=== PATIENT | male | born 1945 | race Caucasian/White ===

== ENCOUNTER 2017-07-06 21:41 | Inpatient (IN) | payer SELFPAY ==
[~2017-07-06] VITALS: Ht 180.3 cm; Wt 101.8 kg
[~2017-07-06 21:41] MED LIST: ZYPREXA20 MG PO
[2017-07-06 22:24] LABS: BASOPHIL (%) 0.2 % (0-1); EOSINOPHIL (%) 0.1 % (0-5); HEMATOCRIT 40.3 % (38.0-50.0); HEMOGLOBIN 14.4 G/DL (12.5-16.6); IMMATURE GRANULOCYTE (%) 0.9 % (0.0-0.7); LYMPHOCYTE (%) 2.1 % (15-42); LYMPHOCYTE COUNT 0.3 K/uL (1.0-2.8); MCH 30.9 PG (29.0-34.0); MCHC 35.7 G/DL (30.0-36.0); MCV 86.5 FL (86-99); NEUTROPHIL (%) 90.7 % (45-76); NEUTROPHIL COUNT 14.5 K/uL (1.8-6.4); PLATELET COUNT 136 K/uL (156-360); RBC DIS.WIDTH-CV 12.4 % (11.8-14.6); RBC DIS.WIDTH-SD 39.4 % (39-53); RED BLOOD COUNT 4.66 M/uL (4.00-5.50)
[2017-07-06 22:43] LABS: INTER. NORMALIZED RATIO 1.2
[2017-07-06 22:44] LABS: CHLORIDE 100 mEq/L (99-109); POTASSIUM 3.8 mEq/L (3.7-5.4); SODIUM 131 mEq/L (136-147)
[2017-07-06 22:46] LABS: GLUCOSE 116 mg/dL (70-99); PTT 25.9 SEC (25-37)
[2017-07-06 22:50] LABS: CREATININE 1.4 mg/dL (0.6-1.3); GFR ESTIMATE (CALCULATED) 53 mL/min/ (58.99-99999); TROP-I INTERPRETATION NEGATIVE; TROPONIN-I 0.01 ng/mL (0.0-0.30); UREA NITROGEN (BUN) 18 mg/dL (9-23)
[2017-07-07 01:57] LABS: APPEARANCE CLEAR ((CLEAR)); BILIRUBIN NEGATIVE; BLOOD NEGATIVE; COLOR YELLOW ((YELLOW)); GLUCOSE (STRIP) NEGATIVE; KETONES NEGATIVE; LEUKOCYTES NEGATIVE; NITRITE NEGATIVE; PROTEIN (STRIP) 30; SPECIFIC GRAVITY 1.018 (1.000-1.030); UCUL ADDED? NO
[2017-07-07 04:26] LABS: ALBUMIN 3.6 g/dL (3.2-4.8)
[2017-07-07 04:29] LABS: TOTAL PROTEIN 5.7 g/dL (6.4-8.3)
[2017-07-07 04:31] LABS: TOTAL BILIRUBIN 1.1 mg/dL (0.0-1.0)
[2017-07-07 04:32] LABS: ALKALINE PHOSPHATASE 40 IU/L (3-129)
[2017-07-07 04:34] LABS: AST (GOT) 41 IU/L (2-34)
[2017-07-07 04:35] LABS: ALT (GPT) 23 IU/L (3-49); DIRECT BILIRUBIN 0.5 mg/dL (0.0-0.3)
[2017-07-07 04:41] LABS: TROP-I INTERPRETATION NEGATIVE; TROPONIN-I 0.03 ng/mL (0.0-0.30)
[2017-07-07 05:45] VITALS: BP 135/67
[2017-07-07 05:51] VITALS: BP 135/67
[2017-07-07 06:20] LABS: CHLORIDE 103 MEQ/L (99-109); CREATININE 1.5 MG/DL (0.6-1.3); GFR ESTIMATE (CALCULATED) 49 mL/min/ (58.99-99999); GLUCOSE 105 mg/dL (70-99); POTASSIUM 4.1 MEQ/L (3.7-5.4); SODIUM 134 MEQ/L (136-147); UREA NITROGEN (BUN) 17 mg/dL (9-23)
[2017-07-07 07:41] LABS: THYROTROPIN (TSH) 1.6 MIU/L (0.4-5.5)
[2017-07-07 07:47] VITALS: BP 96/55
[2017-07-07 11:03] LABS: BASOPHIL (%) 0.2 % (0-1); EOSINOPHIL (%) 0 % (0-5); HEMATOCRIT 34.4 % (38.0-50.0); HEMOGLOBIN 12.1 G/DL (12.5-16.6); IMMATURE GRANULOCYTE (%) 0.7 % (0.0-0.7); LYMPHOCYTE (%) 4.4 % (15-42); LYMPHOCYTE COUNT 0.5 K/uL (1.0-2.8); MCH 31.1 PG (29.0-34.0); MCHC 35.2 G/DL (30.0-36.0); MCV 88.4 FL (86-99); MONOCYTE (%) 3.5 % (3-12); MONOCYTE COUNT 0.4 K/uL (0-0.8); NEUTROPHIL (%) 91.2 % (45-76); NEUTROPHIL COUNT 11.1 K/uL (1.8-6.4); PLATELET COUNT 116 K/uL (156-360); RBC DIS.WIDTH-CV 12.8 % (11.8-14.6); RBC DIS.WIDTH-SD 40.8 % (39-53); RED BLOOD COUNT 3.89 M/uL (4.00-5.50); WHITE BLOOD COUNT 12.1 K/uL (4.1-10.2)
[2017-07-07 11:30] VITALS: BP 103/63
[2017-07-07 11:31] LABS: TROP-I INTERPRETATION NEGATIVE; TROPONIN-I 0.03 ng/mL (0.0-0.30)
[2017-07-07 15:58] VITALS: BP 114/65
[2017-07-07 20:20] VITALS: BP 96/61
[2017-07-08 01:00] VITALS: BP 113/65
[2017-07-08 04:20] VITALS: BP 106/70
[2017-07-08 04:57] LABS: BASOPHIL (%) 0.2 % (0-1); EOSINOPHIL (%) 0.2 % (0-5); HEMATOCRIT 34.7 % (38.0-50.0); IMMATURE GRANULOCYTE (%) 0.4 % (0.0-0.7); LYMPHOCYTE (%) 13.2 % (15-42); LYMPHOCYTE COUNT 1.1 K/uL (1.0-2.8); MCH 30.9 PG (29.0-34.0); MCHC 34.6 G/DL (30.0-36.0); MCV 89.4 FL (86-99); MONOCYTE (%) 7.2 % (3-12); MONOCYTE COUNT 0.6 K/uL (0-0.8); NEUTROPHIL (%) 78.8 % (45-76); NEUTROPHIL COUNT 6.4 K/uL (1.8-6.4); PLATELET COUNT 115 K/uL (156-360); RBC DIS.WIDTH-CV 12.8 % (11.8-14.6); RBC DIS.WIDTH-SD 41.8 % (39-53); RED BLOOD COUNT 3.88 M/uL (4.00-5.50); WHITE BLOOD COUNT 8.1 K/uL (4.1-10.2)
[2017-07-08 05:07] LABS: ALBUMIN 2.9 g/dL (3.2-4.8); SODIUM 138 mEq/L (136-147)
[2017-07-08 05:09] LABS: GLUCOSE 87 mg/dL (70-99)
[2017-07-08 05:13] LABS: ALKALINE PHOSPHATASE 33 IU/L (3-129); CREATININE 1.4 mg/dL (0.6-1.3); GFR ESTIMATE (CALCULATED) 53 mL/min/ (58.99-99999)
[2017-07-08 05:14] LABS: CHLORIDE 111 mEq/L (99-109); TOTAL BILIRUBIN 0.4 mg/dL (0.0-1.0); TOTAL PROTEIN 4.8 g/dL (6.4-8.3); UREA NITROGEN (BUN) 18 mg/dL (9-23)
[2017-07-08 05:16] LABS: ALT (GPT) 23 IU/L (3-49)
[2017-07-08 05:34] LABS: AST (GOT) 65 IU/L (2-34)
[2017-07-08 07:50] VITALS: BP 102/67
[2017-07-08 12:00] VITALS: BP 114/72
[2017-07-08 16:13] VITALS: BP 147/89
[2017-07-08 19:33] VITALS: BP 137/82
[2017-07-09] VITALS (7 sets, daily range): BP systolic 113–138; BP diastolic 72–84
[2017-07-09 10:04] LABS: BASOPHIL (%) 0.4 % (0-1); EOSINOPHIL (%) 1.5 % (0-5); EOSINOPHIL COUNT 0.1 K/uL (0-0.3); HEMATOCRIT 37.3 % (38.0-50.0); HEMOGLOBIN 13.1 G/DL (12.5-16.6); IMMATURE GRANULOCYTE (%) 0.4 % (0.0-0.7); LYMPHOCYTE (%) 16.6 % (15-42); LYMPHOCYTE COUNT 0.9 K/uL (1.0-2.8); MCH 31.2 PG (29.0-34.0); MCHC 35.1 G/DL (30.0-36.0); MCV 88.8 FL (86-99); MONOCYTE (%) 7.5 % (3-12); MONOCYTE COUNT 0.4 K/uL (0-0.8); NEUTROPHIL (%) 73.6 % (45-76); NEUTROPHIL COUNT 3.8 K/uL (1.8-6.4); PLATELET COUNT 130 K/uL (156-360); RBC DIS.WIDTH-CV 12.8 % (11.8-14.6); RBC DIS.WIDTH-SD 41.5 % (39-53); WHITE BLOOD COUNT 5.2 K/uL (4.1-10.2)
[2017-07-09 10:08] LABS: CHLORIDE 110 MEQ/L (99-109); CREATININE 1.2 MG/DL (0.6-1.3); GFR ESTIMATE (CALCULATED) > 59 mL/min/ (58.99-99999); POTASSIUM 4.2 MEQ/L (3.7-5.4); SODIUM 141 MEQ/L (136-147); UREA NITROGEN (BUN) 12 mg/dL (9-23)
[2017-07-09 10:13] LABS: GLUCOSE 113 mg/dL (70-99)
[2017-07-10 04:05] VITALS: BP 140/76
[2017-07-10 07:13] VITALS: BP 140/86
[2017-07-10] MEDS ORDERED: CEPHALEXIN500 MG PO (10:38)
[2017-07-10] MEDS ORDERED: METOPROLOL SUCC25 MG PO (10:40)
[2017-07-10] MEDS ORDERED: ELIQUIS5 MG PO (10:41)
[2017-07-10 11:00] VITALS: BP 143/70
== END 2017-07-10 11:17 | disposition home or self-care (01) | DRG 871 ==
LOC: EME → EDSEX 21:41 → EDBD 21:41 → EME 21:41 → 4EAST 07-07 03:15 → EDOF 07-07 03:15 → ENRESERV 07-07 04:05 → 4EAST 07-07 05:44 → ENRESERV 07-09 11:56 → 5SOUTH 07-09 13:00 → ENRESERV 07-09 13:02 → 4EAST 07-09 13:09 → 5SOUTH 07-09 14:43
PROVIDERS: Emergency Medicine; Hospitalist; Student in an Organized Health Care Education/Training Program
DX: A41.9 Sepsis, unspecified organism (principal); L03.115 Cellulitis of right lower limb; J96.01 Acute respiratory failure with hypoxia; I48.0 Paroxysmal atrial fibrillation; I48.92 Unspecified atrial flutter; D69.59 Other secondary thrombocytopenia; F20.9 Schizophrenia, unspecified; E87.1 Hypo-osmolality and hyponatremia; E86.0 Dehydration; N18.3 Chronic kidney disease, stage 3 (moderate); F17.290 Nicotine dependence, other tobacco product, uncomplicated; E66.9 Obesity, unspecified; Z68.31 Body mass index [BMI] 31.0-31.9, adult; Z53.20 Procedure and treatment not carried out because of patient's decision for unspecified reasons
CPT/HCPCS: 71045; 80048; 80053; 80076; 81003; 83605; 83880; 84443; 84484; 85025; 85379; 85610; 85730; 87040; 93005; 93306; 93970; 99281; 99285; J0690; J1644; J2543; J3370; J7030; J7040